=== PATIENT | male | born 1970 | race African-American/Black ===

== ENCOUNTER 2022-03-24 08:51 | Emergency (ER) | payer BC, SELFPAY ==
--- NOTE | 2022-03-24 08:57 | ED.EYEPROB ---
HPI - Eye Problem General Chief complaint: Eye Problems Stated complaint: eye swelling Time Seen by Provider: 03/24/22 08:57 Source: patient and RN notes reviewed History of Present Illness HPI Narrative: Patient is a 51-year-old male who presents the urgent care with complaints of right eye redness and swelling of the lower eyelid. Patient states that he has been doing a lot at home and believes that maybe he itched it, possibly scratched the lower eyelid. Patient denies of any vision changes. Patient has not done anything [id number]-[id number] for her symptoms. States that it started 3 days ago. No other acute complaints. No acute distress noted. Patient aware of the plan of care. Some parts of this dictation were generated by voice recognition software and may contain typographical and/or grammatical inaccuracies. Related Data Home Medications Medication Instructions Recorded Confirmed ihclhogs-eubhvlqy-xyvow acid 400 tablet PO 01/18/22 mcg-vit K 20 mcg-lycop 300 mcg tablet (Men's Multivitamin) Allergies Allergy/AdvReac Type Severity Reaction Status Date / Time No Known Allergies Allergy Unverified 01/18/22 10:30 Review of Systems Review of Systems: CONSTITUTIONAL: Denies fever, chills, or sweats. EYES: Reports of redness, swelling to the right lower eyelid with itchiness and clear drainage ENT: Denies rhinorrhea, congestion, sore throat, or otalgia. CARDIOVASCULAR: Denies chest pain, palpitations, or edema. RESPIRATORY: Denies cough or dyspnea. GASTROINTESTINAL: Denies abdominal pain, nausea, vomiting, or diarrhea. GENITOURINARY: Denies dysuria or hematuria. SKIN: Denies rash or itching. MUSCULOSKELETAL: Denies back pain, joint pain, or myalgia. NEUROLOGIC: Denies headache, numbness, or weakness. All other systems reviewed are negative, except as documented in HPI. [facility] Family History Family History Other Malignant neoplasm of prostate Social History Social History (Updated 01/18/22 @ 10:37 by Tran Vallejo CMA) Smoking status: Never smoker Second hand tobacco smoke exposure: No Alcohol intake: current Drinks per week: 3 Substance use: never Substance use type: does not use Comments At the time of my signature, I reviewed and agree with the nursing past medical, surgical, social, and family history. There is no relevant family history pertinent to the patient complaint. Exam Narrative: GENERAL: This is a well-nourished, well-developed patient, in no apparent distress. HEAD: normocephalic, atraumatic. EYES: PERRL. Left sclera clear/white. Vision is grossly intact. Lower right eyelid external and internal hordeolum with mild erythema and edema. Clear drainage from the right eye. Mild injected right sclera/conjunctiva EARS: External ears normal NOSE: External nose normal with no obvious nasal discharge, nares without redness, no rhinorrhea. THROAT: Mucous membranes moist NECK: Neck supple CARDIOVASCULAR: Regular rate and rhythm without murmurs, gallops, or rubs. RESPIRATORY: Clear to auscultation. Breath sounds equal bilaterally. No wheezes, rales, or rhonchi. SKIN: warm, intact with no suspicious lesions or rash, good texture and turgor. NEURO: awake, alert, and oriented to person, place and time. There were no obvious focal neurologic abnormalities. EXTREMITIES: No clubbing, cyanosis, or edema. Course Course Level of Care: Express Care Visit Vital Signs Vital signs: Vital Signs Temperature 98.9 F 03/24/22 09:02 Pulse Rate 68 03/24/22 09:02 Respiratory Rate 16 03/24/22 09:02 Blood Pressure 111/88 03/24/22 09:02 Pulse Oximetry 100 03/24/22 09:02 Temperature 98.9 F 03/24/22 09:02 Pulse Rate 68 03/24/22 09:02 Respiratory Rate 16 03/24/22 09:02 Blood Pressure 111/88 03/24/22 09:02 Pulse Oximetry 100 03/24/22 09:02 Reviewed MDM - Eye Problem MDM Narrative Medical de
[2022-03-24 09:02] VITALS: BP 111/88; PULSE 68; RESP 16; TEMP 37.2; O2SAT 100
== END 2022-03-24 09:48 | disposition home or self-care (01) ==
PROVIDERS: Emergency Provider Nurse Practitioner Family; PCP Family Medicine
DX: H00.012 Hordeolum externum right lower eyelid (principal)
CPT/HCPCS: 99213; G0463

== ENCOUNTER 2023-08-18 09:26 | Emergency (ER) | payer OTHER, BC, SELFPAY ==
--- NOTE | ~2023-08-18 | XR_ITS ---
XR hip LT 2V w AP pelvis DATE: 08/18/2023 10:40 INDICATION: Posterior left hip pain radiating to knee TECHNIQUE: AP pelvis. AP and lateral views of left hip. COMPARISON: None FINDINGS: Approximately 4.7 x 13 mm bony density is noted near the superior aspect of the left greate r trochanter, possibly a cortical avulsion fracture. No other fracture or dislocation, avascular necrosis or bone destruction or hip joint space narrowing is noted. Normal alignment at the pubic symphysis and sacroiliac joints. No pelvic fracture is noted. IMPRESSION: Possible cortical avulsion fracture of uncertain age of the left greater trochanter; othe rwise negative examination Reviewed, dictated and finalized at location [facility]. E ROLL OPERATOR IMPRESSION: Possible cortical avulsion fracture of uncertain age of the left gr eater trochanter; otherwise negative examination
[2023-08-18 09:35] VITALS: BP 138/79; PULSE 104; RESP 14; TEMP 36.6; O2SAT 100
--- NOTE | 2023-08-18 10:10 | ED.LOWEXIN ---
HPI - Extremity Injury (Lower) General Chief Complaint: Extremity Injury, Lower Stated Complaint: back/hip/leg pain Time Seen by Provider: 08/18/23 09:44 Source: patient Mode of arrival: wheelchair Limitations: no limitations History of Present Illness HPI Narrative: 52-year-old male presenting with left hip injury. He was lifting a package to do a virtual doorstep and took a step up onto a step and felt a twinge in his left hip. Since then it has been bothering him and hurting. It has been getting some spasm and tight when he lays in 1 position for a while. Sits isolated on the lateral left hip. Does not radiate. No bowel or bladder dysfunction. No paresthesias. All other symptoms and complaints are negative as per ROS. Related Data Allergies Allergy/AdvReac Type Severity Reaction Status Date / Time No Known Allergies Allergy Verified 08/01/23 14:29 Review of Systems Review of Systems: All systems reviewed & are unremarkable except as noted in HPI and below (HPI) [facility] Family History Family History Other Malignant neoplasm of prostate Social History Social History Smoking status: Never smoker Second hand tobacco smoke exposure: No Alcohol intake: current Drinks per week: 3 Substance use: never Substance use type: does not use Living arrangements: with family Occupation/Education: occupation Spiritual care concerns: No Exam Narrative: Constitutional: Generally well appearing, no acute distress Head: Atraumatic, no deformities. Eyes: Pupils equal, round, and reactive to light. Neck: Supple, no tracheal deviation, no JVD. ENMT: Mucous membranes moist Cardiovascular: S1, S2 auscultated. No murmurs, rubs, or gallops. No S3/S4. Normal Distal pulses. No peripheral edema. Respiratory: Lung sounds equal. No wheezes, rales, or rhonchi. Musculoskeletal: Normal muscle tone and bulk. No obvious deformities over extremities. Mild tenderness over the left lateral hip. Mild pain with range of motion of the left hip. No leg shortening. No limited range of motion. No midline back tenderness. Skin: No rashes. Neurological: Strength 5/5 in extremities. Distal sensation intact. Mental Status: Awake, alert and oriented x3. Follows commands Course Vital Signs Vital signs: Vital Signs Temperature 36.6 C 08/18/23 09:35 Pulse Rate 104 H 08/18/23 09:35 Respiratory Rate 14 08/18/23 09:35 Blood Pressure 138/79 08/18/23 09:35 Pulse Oximetry 100 08/18/23 09:35 Oxygen Delivery Room Air 08/18/23 09:35 Temperature 36.6 C 08/18/23 09:35 Pulse Rate 104 H 08/18/23 09:35 Respiratory Rate 14 08/18/23 09:35 Blood Pressure 138/79 08/18/23 09:35 Pulse Oximetry 100 08/18/23 09:35 Oxygen Delivery Room Air 08/18/23 09:35 MDM - Extremity Injury (Lower) MDM Narrative Medical decision making narrative: 52-year-old male presenting with left hip injury while walking up steps of the heavy object at work yesterday. Exam shows no focal neurological abnormalities. Mild pain with range of motion of the left hip and tenderness over the left lateral hip. Suspect MSK related, unlikely fracture. No red flag findings for acute spinal cord impingement. Given Toradol. X-ray obtained. X-ray shows evidence of small left greater trochanter avulsion fracture. I discussed with orthopedics traffic operations engineer Dr. Mercado who suspects it may be an old fracture but nonetheless, patient should remain nonweightbearing and can follow up with him in about a week. Given crutches. Discussed with patient. He is agreeable with the plan. Given prescription for Norflex and ibuprofen. Pt feeling improved and would like to go home at this point. Return precautions were given to the patient include any new or worsening symptoms or development of and not limited to any chest pain, shortness of breath,
[2023-08-18] MEDS: KETOROLAC 30 MG/ML VIAL (*BKC) IM (10:19)
[2023-08-18 12:10] VITALS: BP 140/80; PULSE 80; RESP 16; TEMP 36.6; O2SAT 100
== END 2023-08-18 12:11 | disposition home or self-care (01) ==
PROVIDERS: Emergency Provider Emergency Medicine; PCP Family Medicine
DX: S72.112A Displaced fracture of greater trochanter of left femur, initial encounter for closed fracture (principal); X50.9XXA Other and unspecified overexertion or strenuous movements or postures, initial encounter
CPT/HCPCS: 73502; 96372; 99283; J1885

== ENCOUNTER 2023-08-28 01:01 | Day surgery (SDC) | payer BC, SELFPAY ==
[2023-08-01 14:27] VITALS: BMI 29.2
--- NOTE | 2023-08-25 09:55 | PC.NURSE ---
Patient called regarding upcoming procedure. Reviewed preop instructions, appointment times, and procedure prep.
[2023-08-28 07:20] VITALS: BP 121/89; PULSE 95; RESP 18; TEMP 36; O2SAT 99; BMI 28.8
[2023-08-28] MEDS: LACTATED RINGERS 1,000 ML 150 ML IV CONT (07:41)
--- NOTE | 2023-08-28 08:37 | WPDANESEPPF ---
Anes - Initial Pre Proc Eval Procedure: Operation Date: 08/28/23 08:30 Proposed Procedures p Screening Colonoscopy - Enrico Sahni MD Date/Time: 08/28/23 08:37 Surgeon: Enrico Sahni MD Pre Op Diagnosis: neoplasm screening Patient Data Age: 52 Gender: M Height: 1.83 m Weight: 96.4 kg Last Vital Signs Temp 96.8 F L 08/28/23 07:20 Pulse 95 08/28/23 07:20 Resp 18 08/28/23 07:20 BP 121/89 08/28/23 07:20 Pulse Ox 99 08/28/23 07:20 O2 Del Method Room Air 08/28/23 07:20 Allergies Allergy/AdvReac Type Severity Reaction Status Date / Time No Known Allergies Allergy Verified 08/28/23 07:31 Home Medications Medication Instructions Recorded Confirmed Type ibuprofen 400 mg tablet 400 mg PO Q6H PRN pain #20 tabs 08/18/23 08/28/23 Rx orphenadrine citrate 100 mg 100 mg PO Q12H PRN muscle spasm 5 08/18/23 08/28/23 Rx tablet,extended release days #10 tabs Patient hx anesthesia problems: none Family hx anesthesia problems: none Results Review: All pre-operative results and documents have been reviewed as part of the pre-operative evaluation. [facility] Family History Family History Other Malignant neoplasm of prostate Social History Social History Smoking status: Never smoker Second hand tobacco smoke exposure: No Alcohol intake: current Drinks per week: 3 Substance use: never Substance use type: does not use Living arrangements: with family Occupation/Education: occupation Spiritual care concerns: No Anes - Eval Final PreProcedure Day of Procedure 08/28/23 08:37 Patient weight: overweight Heart: regular rate and rhythm Lungs: clear to auscultation Airway: Mallampati scale class 1 Neurological: alert and oriented Last oral intake: >/= 8 hours ASA classification: II Emergent: no Anesthetic plan: proceed Anesthesia type and monitoring: general GIVS and standard monitoring Results Review: All pre-operative results and documents have been reviewed as part of the pre-operative evaluation. Informed Consent: The patient's anesthetic plan and its attendant risks and benefits were discussed with the patient/family/POA. Questions were solicited and answers provided to the satisfaction of the patient/family/POA.
--- NOTE | 2023-08-28 08:56 | PM.HPGS ---
History of Present Illness History of Present Illness Consent: Risks, benefits, and alternatives have been discussed and questions answered. Patient agrees to proceed with procedure. Chief complaint: neoplasm screening Narrative: Willa Manrique is a 52 year old male here for first screening colonoscopy Review of Systems Constitutional: Constitutional: Denies headache(s) and Denies weakness Eyes: Eyes: Denies blurry vision ENT: Reports Normal hearing present, Denies headache(s) and Denies neck pain Cardiovascular: Cardiovascular: Denies chest pain and Denies dyspnea Respiratory: Respiratory: Denies dyspnea Gastrointestinal: Gastrointestinal: Reports no additional gastrointestinal complaints Genitourinary: Genitourinary: Denies dysuria Musculoskeletal: Musculoskeletal: Denies neck pain Integumentary/Breasts: Skin/Breast: Denies dry skin Neurologic: Reports Normal hearing present, Denies headache(s) and Denies weakness Psychiatric: Psychiatric: Denies anxiety Endocrine: Endocrine: Denies change in body appearance Hematologic/Lymphatic: Hematologic/Lymphatic: Denies easy bleeding Allergic/Immunologic: Allergic/Immunologic: Denies urticaria PMF Past Medical History Medical History (Updated 08/28/23 @ 08:56 by Enrico Sahni MD) Colon cancer screening Family History Family History Other Malignant neoplasm of prostate Social History Social History Smoking status: Never smoker Second hand tobacco smoke exposure: No Alcohol intake: current Drinks per week: 3 Substance use: never Substance use type: does not use Living arrangements: with family Occupation/Education: occupation Spiritual care concerns: No Meds Home Medications and Allergies Home Medications Medication Instructions Recorded Confirmed Type ibuprofen 400 mg tablet 400 mg PO Q6H PRN pain #20 tabs 08/18/23 08/28/23 Rx orphenadrine citrate 100 mg 100 mg PO Q12H PRN muscle spasm 5 08/18/23 08/28/23 Rx tablet,extended release days #10 tabs Allergies Allergy/AdvReac Type Severity Reaction Status Date / Time No Known Allergies Allergy Verified 08/28/23 07:31 Vital Signs Vital Signs - 24 hr 08/28/23 07:20 Temperature 96.8 F L Pulse Rate 95 Respiratory Rate 18 Blood Pressure 121/89 Pulse Oximetry 99 Oxygen Delivery Room Air Exam Const: General: comfortable and no acute distress HENMT: Face/Nose/Sinus: Normal nares present Eyes: General: appearance normal, both eyes and all related structures Neck: Neck: no JVD Resp: Auscultation: clear to auscultation bilaterally Cardio: Rate: regular rate Rhythm: regular rhythm GI: Inspection: non-distended GI Palp: Yes Soft to palpation Skin: General skin exam: normal color Neuro: General: gait normal Speech: normal speech Extrem: General: normal to inspection Psych: Mental Status: mental status grossly normal Assessment and Plan Assessment and plan (1) Colon cancer screening: Code(s): Z12.11 - Encounter for screening for malignant neoplasm of colon Status: Acute Assessment and Plan: colonoscopy
[2023-08-28 09:13] VITALS: BP 94/69; PULSE 96; RESP 24; O2SAT 99
[2023-08-28 09:23] VITALS: BP 106/69; PULSE 87; RESP 24; O2SAT 99
[2023-08-28 09:33] VITALS: BP 117/79; PULSE 82; RESP 20; O2SAT 99
== END 2023-08-28 09:44 | disposition home or self-care (01) ==
PROVIDERS: PCP Family Medicine; Referring Provider Physician Assistant; Visit Provider Internal Medicine Gastroenterology
PROC: 0DJD8ZZ Inspection of Lower Intestinal Tract, Via Natural or Artificial Opening Endoscopic (ICD-10-PCS; CPT 45378; principal; 2023-08-28 08:30)
DX: Z12.11 Encounter for screening for malignant neoplasm of colon (principal); K64.8 Other hemorrhoids; Z80.42 Family history of malignant neoplasm of prostate
CPT/HCPCS: 45378; J2704; J7120